=== PATIENT | male | born 1965 | race Caucasian/White ===

== ENCOUNTER 2019-05-17 08:33 | Emergency (ER) | payer BC ==
[~2019-05-17] VITALS: Ht 190.5 cm; Wt 102.1 kg
[2019-05-17 08:41] VITALS: BP 129/86
== END 2019-05-17 08:59 | disposition home or self-care (01) ==
LOC: ER 08:33
DX: S02.2XXA Fracture of nasal bones, initial encounter for closed fracture (principal); I10 Essential (primary) hypertension; E11.9 Type 2 diabetes mellitus without complications; W01.0XXA Fall on same level from slipping, tripping and stumbling without subsequent striking against object, initial encounter; Y93.89 Activity, other specified; Y92.89 Other specified places as the place of occurrence of the external cause; Y99.8 Other external cause status